=== PATIENT | female | born 1995 | race Caucasian/White ===

== ENCOUNTER → 2023-08-20 15:40 | Outpatient (REF) | payer BC, SELFPAY | LOC: HWRAD 15:40 | PROVIDERS: ATTENDING PHYSICIAN Physician Assistant | DX: R51.9 Headache, unspecified (principal); M54.2 Cervicalgia; D36.0 Benign neoplasm of lymph nodes; H93.11 Tinnitus, right ear | CPT/HCPCS: 70450; 72050 ==